=== PATIENT | female | born 1940 | race Caucasian/White ===

== ENCOUNTER 2022-01-12 11:02 | Outpatient (CLI) | payer OTHER, MEDICAID ==
[2022-01-12 13:15] LABS: Actual Bicarbonate (HCO3a) 29.8 mEq/L (22-28); Base Excess (BEa) 4.9 mEq/L (-2.0 to +3.0); CO2 Tension 44.6 mmHg (35.0-45.0); Calcium, Ionized (arterial) 1.15 mmol/L (1.12-1.30); Carboxyhemoglobin (COHb) 1.6 gm% (0.0-3.0); Hemoglobin (Hb) 15.2 g/dL (12.0-16.0); O2 Tension (PaO2), arterial 66.8 mmHg (> 60.0); Potassium - ABG Lab 3.6 mmol/L (3.70-5.30); Puncture Site LBA; pH, Arterial 7.44 (7.35-7.45)
== END 2022-01-12 11:03 | disposition home or self-care (01) ==
LOC: CSHCP 11:02
PROVIDERS: ATTEND Internal Medicine Pulmonary Disease
DX: J44.0 Chronic obstructive pulmonary disease with (acute) lower respiratory infection (principal)
CPT/HCPCS: 36600; 82805; 94060; 94729; 94760